=== PATIENT | female | born 1985 | race Caucasian/White ===

== ENCOUNTER 2017-05-23 20:20 | Emergency (ER) ==
[~2017-05-23] VITALS: Ht 162.6 cm; Wt 84.1 kg
[2017-05-23 20:20] VITALS: BP 113/72
[2017-05-23 21:35] LABS: MICROSCOPIC INDICATED? MAN YES (NO)
[2017-05-23 22:35] LABS: MICROSCOPIC EXAM PERFORMED; RBC, URINE NONE SEEN /hpf (0-3); WBC, URINE 0-1 /hpf (0-3)
[2017-05-23 22:36] LABS: BACTERIA, URINE SMALL AMOUNT; HYALINE CAST, URINE NONE SEEN /lpf (0-1); SQUAMOUS EPITHELIAL CELL URINE MOD AMOUNT /hpf (SMALL AMT)
[2017-08-12] MEDS ORDERED: PRENTAB9 PO (18:11)
[2017-08-12] MEDS ORDERED: ACET50TA PO (18:11)
== END 2017-05-23 23:40 | disposition left against medical advice (07) ==
LOC: M ED 20:20
DX: R10.9 Unspecified abdominal pain (principal); Z53.29 Procedure and treatment not carried out because of patient's decision for other reasons

== ENCOUNTER 2017-10-07 10:00 | Outpatient (CLI) | payer OTHER | END 2017-10-07 11:02 | disposition home or self-care (01) | LOC: M LDO 10:00 | DX: O47.03 False labor before 37 completed weeks of gestation, third trimester (principal); Z3A.36 36 weeks gestation of pregnancy | CPT/HCPCS: 59025 ==

== ENCOUNTER 2017-10-16 11:38 | Outpatient (CLI) | payer OTHER | END 2017-10-16 13:48 | disposition home or self-care (01) | LOC: M LDO 11:38 | DX: O26.893 Other specified pregnancy related conditions, third trimester (principal); N89.9 Noninflammatory disorder of vagina, unspecified; O99.343 Other mental disorders complicating pregnancy, third trimester; F32.9 Major depressive disorder, single episode, unspecified; Z3A.37 37 weeks gestation of pregnancy | CPT/HCPCS: 59025 ==

== ENCOUNTER 2017-10-17 16:26 | Outpatient (CLI) | payer OTHER | END 2017-10-17 19:51 | disposition home or self-care (01) | LOC: M LDO 16:26 | DX: O47.03 False labor before 37 completed weeks of gestation, third trimester (principal); Z3A.37 37 weeks gestation of pregnancy ==

== ENCOUNTER 2017-10-17 21:50 | Inpatient (IN) | payer OTHER ==
[2017-10-17] MEDS: OXYTOCIN INJ 10 UNITS/ML VIAL (J2590) IM (21:51)
[2017-10-17] MEDS ORDERED: RHOGAM 300 MCG (1500 IU) INJ (J2790) IM (22:15)
[2017-10-17] MEDS ORDERED: PROMETHAZINE 25 MG TAB PO (22:15)
[2017-10-17] MEDS ORDERED: ONDANSETRON 4MG/2ML VIAL (J2405) IV (22:15)
[2017-10-17] MEDS ORDERED: MEASLES,MUMPS,RUBELLA VACCINE INJ (MMR-II) (90707) SC (22:15)
[2017-10-17] MEDS ORDERED: DIBUCAINE 1% OINTMENT 30GM TOP (22:15)
[2017-10-17] MEDS ORDERED: METHYLERGONOVINE MALEATE 0.2 MG/ML VIAL (J2210) IM (22:15)
[2017-10-17] MEDS: ACETAMINOPHEN 500 MG TAB PO (22:20)
[2017-10-17] MEDS: IBUPROFEN 800 MG TAB PO (22:20)
[2017-10-18] MEDS: ACETAMINOPHEN 500 MG TAB PO ×4 (02:58→22:10)
[2017-10-18 03:43] LABS: AMPHETAMINES URINE REFLEX NEGATIVE (NEGATIVE); BARBITURATES URINE REFLEX NEGATIVE (NEGATIVE); BENZODIAZEPINES URINE REFLEX NEGATIVE (NEGATIVE); CANNABINOIDS URINE REFLEX NEGATIVE (NEGATIVE); COCAINE METABOLITE URINE REFLE NEGATIVE (NEGATIVE); METHADONE URINE REFLEX NEGATIVE (NEGATIVE); OPIATES URINE REFLEX NEGATIVE (NEGATIVE); PHENCYCLIDINE URINE REFLEX NEGATIVE (NEGATIVE)
[2017-10-18] MEDS: IBUPROFEN 800 MG TAB PO ×3 (05:35→20:22)
[2017-10-18] MEDS: DOCUSATE SODIUM 100 MG CAP PO ×2 (09:29→21:00)
[2017-10-18] MEDS: PRENATAL VITAMINS CHEWABLE TABLET PO (09:29)
[2017-10-18] MEDS: OMEPRAZOLE 20 MG CAP PO ×2 (10:32→21:00)
[2017-10-18 13:05] LABS: BASO % 0.1 % (0.0-1.0); EOS # 0.1 10^3/uL (0.0-0.50); EOS % 0.4 % (0.0-3.0); HEMATOCRIT 33.8 % (36.0-47.0); HEMOGLOBIN 10.8 g/dl (12.0-16.0); IMMATURE GRANULOCYTE # 0.1 10^3/uL (0-0); IMMATURE GRANULOCYTE % 0.4 % (0-0); LYMPH # 1.4 10^3/uL (1.5-6.5); LYMPH % 9.8 % (24.0-44.0); MEAN CORPUSCULAR HEMOGLOBIN 25.7 pg (27.0-33.0); MEAN CORPUSCULAR VOLUME 80.5 fl (80.0-96.0); MONO # 0.7 10^3/uL (0.0-0.8); MONO % 5.1 % (0.0-5.0); NEUTROPHILS # 12.2 10^3/uL (1.8-7.7); NEUTROPHILS % 84.2 % (36.0-66.0); PLATELET COUNT, AUTOMATED 217 10^3/uL (150-450); RED CELL DISTRIBUTION WIDTH 13.6 % (11.5-14.5); WHITE BLOOD COUNT 14.6 10^3/uL (4.0-10.0)
[2017-10-18] MEDS: PERCOCET 5MG/325MG TAB PO (22:10)
[2017-10-19] MEDS: IBUPROFEN 800 MG TAB PO (05:06)
[2017-10-19] MEDS: PRENATAL VITAMINS CHEWABLE TABLET PO (08:04)
[2017-10-19] MEDS: OMEPRAZOLE 20 MG CAP PO (08:05)
[2017-10-19] MEDS: DOCUSATE SODIUM 100 MG CAP PO (08:05)
== END 2017-10-19 12:25 | disposition home or self-care (01) | DRG 775 ==
LOC: M LDI 21:50 → M OBS 10-18 00:58
PROC: 10E0XZZ Delivery of Products of Conception, External Approach (ICD-10-PCS; principal; 2017-10-17)
DX: O71.2 Postpartum inversion of uterus (principal); Z37.0 Single live birth; Z3A.37 37 weeks gestation of pregnancy; Z88.0 Allergy status to penicillin